=== PATIENT | female | born 1935 | race Caucasian/White ===

== ENCOUNTER 2020-07-18 17:08 | Emergency (ER) | payer OTHER ==
[~2020-07-18] VITALS: Ht 154.9 cm; Wt 83.9 kg
[~2020-07-18 17:08] MED LIST: ALENDRONATE SOD70 MG PO; BICARSIM80 MG PO; COREG12.5 MG PO; ELIQUIS5 MG PO; FOLIC ACID1 MG PO; TUMS PO; VITAMIN D1000 UNI1 PO
[2020-07-18 17:26] LABS: HEMATOCRIT 41.1 % (37.0-47.0); HEMOGLOBIN 13.5 gm/dL (12.0-15.0); MCH 28.6 pg (26.0-34.0); MCHC 32.8 g/dL (28.0-37.0); MCV 87.3 fL (80.0-100.0); NUCLEATED RBCS 0 /100WBC; PLATELET COUNT* 311 thou/uL (150-400); RBC 4.71 mil/uL (4.20-5.00); RDW-CV 14.6 % (10.5-14.5); WBC 21.9 thou/uL (4.0-11.0)
[2020-07-18 17:38] LABS: CALCIUM 9.5 mg/dL (8.5-10.1); CREATININE 0.9 mg/dL (0.6-1.3); POTASSIUM 3.2 mmol/L (3.5-5.1)
[2020-07-18 17:43] LABS: ALBUMIN 2.7 g/dL (3.4-5.0); TOTAL BILIRUBIN 1.2 mg/dL (<0.1-1.0); TOTAL PROTEIN 6.2 g/dL (6.4-8.2)
[2020-07-18 18:03] LABS: ABSOLUTE LYMPHOCYTES 0.9 thou/uL (0.8-5.3); ABSOLUTE MONOCYTES 1.1 thou/uL (0.0-1.2); ABSOLUTE NEUTROPHILS 19.9 thou/uL (1.6-8.1)
[2020-07-18 18:06] LABS: PLATELET ESTIMATE ADEQUATE
[2020-07-18 19:34] VITALS: BP 125/54
[2020-07-19] MEDS ORDERED: LOPERAMIDE 2 MG2 MG PO ×2 (10:12)
[2020-07-19] MEDS ORDERED: HYDRALAZINE 10M10 MG PO ×2 (10:13)
[2020-07-19] MEDS ORDERED: OXYBUTYNIN 5 MG5 M2 PO ×2 (10:14)
== END 2020-07-18 19:35 | disposition home or self-care (01) ==
LOC: M.ERS 17:08
PROVIDERS: Family Medicine
DX: S30.0XXA Contusion of lower back and pelvis, initial encounter (principal); Z90.710 Acquired absence of both cervix and uterus; Z90.49 Acquired absence of other specified parts of digestive tract; Z98.890 Other specified postprocedural states; Z86.718 Personal history of other venous thrombosis and embolism; Z88.8 Allergy status to other drugs, medicaments and biological substances; W07.XXXA Fall from chair, initial encounter; Y93.89 Activity, other specified; Y92.89 Other specified places as the place of occurrence of the external cause; Y99.8 Other external cause status

== ENCOUNTER 2020-07-19 10:03 | Inpatient (IN) | payer OTHER ==
[~2020-07-19] VITALS: Ht 154.9 cm; Wt 76.3 kg
[2020-07-19 10:05] VITALS: BP 111/64
[2020-07-19] MEDS ORDERED: LOPERAMIDE 2 MG2 MG PO ×2 (10:12)
[2020-07-19] MEDS ORDERED: HYDRALAZINE 10M10 MG PO ×2 (10:13)
[2020-07-19] MEDS ORDERED: OXYBUTYNIN 5 MG5 M2 PO ×2 (10:14)
[2020-07-19 10:39] LABS: URINE BLOOD 2+ (Negative); URINE CLARITY CLEAR; URINE COLOR YELLOW; URINE GLUCOSE-RANDOM NEGATIVE (Negative); URINE KETONES NEGATIVE (Negative); URINE LEUKOCYTES 3+ (Negative); URINE NITRITE NEGATIVE (Negative); URINE PROTEIN NEGATIVE (Negative); URINE SPECIFIC GRAVITY <= 1.005 (1.005-1.030); URINE UROBILINOGEN 0.2 E.U./dl (0.2-1.0)
[2020-07-19 10:41] LABS: ICTOTEST (BILI CONFIRMATORY) Negative (Negative); URINE BILIRUBIN 1+ (Negative)
[2020-07-19 10:51] LABS: SQUAMOUS 0-3 Few /LPF (0-3)
[2020-07-19 10:52] LABS: BACTERIA >30 Many /HPF (None Seen); CASTS None Seen /LPF (None Seen); CRYSTALS None Seen /LPF (None Seen); MUCUS 0-3 Light strn/LPF (None Seen); URINE RBC 3-10 Few /HPF (0-2)
[2020-07-19 10:55] LABS: ABSOLUTE BASOPHILS 0.1 thou/uL (0.0-0.2); ABSOLUTE LYMPHOCYTES 1.6 thou/uL (0.8-5.3); ABSOLUTE MONOCYTES 0.9 thou/uL (0.0-1.2); ABSOLUTE NEUTROPHILS 17.4 thou/uL (1.6-8.1); BASOPHILS 0.3 %; EOSINOPHILS 0.2 %; HEMOGLOBIN 13.7 gm/dL (12.0-15.0); LYMPHOCYTES 7.8 %; MCH 28.5 pg (26.0-34.0); MCHC 32.7 g/dL (28.0-37.0); MCV 86.9 fL (80.0-100.0); MONOCYTES 4.6 %; MPV 7.3 fl. (7.2-11.1); NUCLEATED RBCS 0 /100WBC; PLATELET COUNT* 338 thou/uL (150-400); POLYS 87.1 %; RBC 4.83 mil/uL (4.20-5.00); RDW-CV 15.1 % (10.5-14.5)
[2020-07-19 10:58] LABS: CALCIUM 9.3 mg/dL (8.5-10.1)
[2020-07-19 10:59] LABS: POTASSIUM 2.6 mmol/L (3.5-5.1)
[2020-07-19 11:03] LABS: ALBUMIN 2.7 g/dL (3.4-5.0); TOTAL BILIRUBIN 1.7 mg/dL (<0.1-1.0); TOTAL PROTEIN 6.2 g/dL (6.4-8.2)
[2020-07-19 15:47] VITALS: BP 112/58
[2020-07-19 16:15] VITALS: BP 81/34
[2020-07-19 16:23] VITALS: BP 99/51
--- NOTE | 2020-07-19 17:24 | EKG ---
[place] [address] ELECTROCARDIOGRAM REPORT Name: LALO HERNANDEZ Room: [address] ADM IN .R.#: [id number] Admission: 07/19/20 Attend Phys: Fior Balderrama, Discharge: Date of : 37 Date of Service: 07/19/20 1008 Report #: [id number] THIS REPORT FOR: //name// [facility] ED Test Date: 2020-07-19 Test Time: 10:08:41 Pat Name: LALO HERNANDEZ Department: Room: [facility] Gender: F Wrapper Layer: AARON : 1935 Requested By: Joe Contreras Order Number: [id number] MD: Alejandro Goyal Measurements Intervals [place] Rate: 92 P: 0 OK: 57 QRS: -16 QRSD: 100 T: 111 QT: 387 QTc: 479 Interpretive Statements Sinus rhythm Premature atrial contractions Nonspecific T wave flattening Borderline left axis deviation Borderline repolarization abnormality Compared to ECG 01/02/2016 06:27:59 No significant changes noted Electronically Signed On 07-19-2020 17:24:31 CDT by Alejandro Goyal [email or web address] <ELECTRONICALLY SIGNED> By: Alejandro Goyal MD, FACC 07/19/20 1724 1008 1008 Alejandro Goyal MD, FACC /EPI
[2020-07-19 20:00] VITALS: BP 102/52
[2020-07-20] VITALS (7 sets, daily range): BP systolic 87–115; BP diastolic 40–50
[2020-07-20 04:48] LABS: HEMATOCRIT 32.8 % (37.0-47.0); MCH 28.9 pg (26.0-34.0); MCHC 33.1 g/dL (28.0-37.0); MCV 87.4 fL (80.0-100.0); MPV 7.5 fl. (7.2-11.1); RBC 3.76 mil/uL (4.20-5.00); RDW-CV 15.3 % (10.5-14.5); WBC 17.3 thou/uL (4.0-11.0)
[2020-07-20 05:22] LABS: CALCIUM 8.3 mg/dL (8.5-10.1); CREATININE 0.9 mg/dL (0.6-1.3); MAGNESIUM 1.9 mg/dL (1.8-2.4); POTASSIUM 3.5 mmol/L (3.5-5.1); TOTAL BILIRUBIN 0.8 mg/dL (<0.1-1.0); TOTAL PROTEIN 4.7 g/dL (6.4-8.2)
[2020-07-20 05:52] LABS: HEMOGLOBIN 10.9 gm/dL (12.0-15.0)
[2020-07-21 04:00] VITALS: BP 96/40
[2020-07-21 04:54] LABS: HEMATOCRIT 31.7 % (37.0-47.0); HEMOGLOBIN 10.5 gm/dL (12.0-15.0); MCV 87.8 fL (80.0-100.0); MPV 7.2 fl. (7.2-11.1); RBC 3.61 mil/uL (4.20-5.00); RDW-CV 15.3 % (10.5-14.5); WBC 11.7 thou/uL (4.0-11.0)
[2020-07-21 05:05] LABS: CALCIUM 7.8 mg/dL (8.5-10.1); CREATININE 0.7 mg/dL (0.6-1.3); POTASSIUM 3.2 mmol/L (3.5-5.1)
[2020-07-21 08:38] VITALS: BP 115/50
[2020-07-21 11:56] VITALS: BP 98/41
[2020-07-21 16:00] VITALS: BP 96/41
[2020-07-21 20:00] VITALS: BP 109/56
[2020-07-22 01:01] VITALS: BP 103/40
[2020-07-22 04:03] VITALS: BP 104/47
[2020-07-22 12:00] VITALS: BP 102/42
[2020-07-22 16:00] VITALS: BP 106/37
[2020-07-22 20:00] VITALS: BP 105/37
[2020-07-23] VITALS: BP 124/42
[2020-07-23 04:00] VITALS: BP 98/44
[2020-07-23 08:51] VITALS: BP 115/41
[2020-07-23 12:00] VITALS: BP 111/37
== END 2020-07-23 15:40 | disposition short-term general hospital (02) | DRG 640 ==
LOC: M.ERS 10:03 → M.2W 11:35 → M.TBA-ER 11:35 → M.2W 15:57
PROVIDERS: Emergency Medicine; Internal Medicine; ADMIT Internal Medicine; ATTEND Internal Medicine
DX: E87.6 Hypokalemia (principal); G92 Toxic encephalopathy; R65.11 Systemic inflammatory response syndrome (SIRS) of non-infectious origin with acute organ dysfunction; N30.01 Acute cystitis with hematuria; F03.91 Unspecified dementia, unspecified severity, with behavioral disturbance; E44.0 Moderate protein-calorie malnutrition; I25.10 Atherosclerotic heart disease of native coronary artery without angina pectoris; Z20.822 Contact with and (suspected) exposure to COVID-19; I25.2 Old myocardial infarction; Z90.49 Acquired absence of other specified parts of digestive tract; Z90.710 Acquired absence of both cervix and uterus; Z86.718 Personal history of other venous thrombosis and embolism; Z98.891 History of uterine scar from previous surgery; Z79.01 Long term (current) use of anticoagulants; Z79.899 Other long term (current) drug therapy; Z88.2 Allergy status to sulfonamides; Z88.8 Allergy status to other drugs, medicaments and biological substances; Z68.31 Body mass index [BMI] 31.0-31.9, adult